=== PATIENT | female | born 2000 | race Caucasian/White ===

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

== ENCOUNTER 2023-04-28 11:22 | Inpatient (IN) ==
[2023-04-28] MEDS ORDERED: Al Hydrox/Mg Hydrox/Simet LIQ 30 ML UDC PO PRN (14:34)
[2023-04-28] MEDS ORDERED: Nicotine GUM 2MG FRUIT FLAVOR PO PRN (16:35)
[2023-04-28] MEDS ORDERED: Insulin GLARGINE 100 un/ml 10 ml VIAL SUBCUT SCH (21:00)
[2023-04-29 07:58] LABS: HDL Cholesterol 47.1 mg/dL
[2023-04-29] MEDS: Nicotine PATCH 14 MG/24 HR PATCH TRANSDERM SCH (09:49)
[2023-04-29 16:26] LABS: HIV 4th Generation Nonreactive (Nonreactive)
[2023-04-29] MEDS ORDERED: SEMAGLUTIDE SUBCUT SCH (17:00)
[2023-04-29] MEDS ORDERED: INJECTOR SUBCUT SCH (17:00)
[2023-04-29] MEDS: Insulin GLARGINE 100 un/ml 10 ml VIAL SUBCUT SCH (21:01)
[2023-04-30] MEDS: Nicotine PATCH 14 MG/24 HR PATCH TRANSDERM SCH (09:37)
[2023-04-30 12:35] LABS: Chlamydia trachomatis NAA Negative (Negative); Neisseria gonorrhoeae (GC) NAA Negative (Negative)
[2023-04-30] MEDS: Insulin GLARGINE 100 un/ml 10 ml VIAL SUBCUT SCH (21:39)
[2023-05-01] MEDS: Nicotine PATCH 14 MG/24 HR PATCH TRANSDERM SCH (09:28)
[2023-05-01 10:09] VITALS: BP 122/80
[2023-05-02] MEDS ORDERED: [UNRECOGNIZED DRUG - OTHER] TRANSDERM SCH (17:00)
== END 2023-05-01 16:00 | disposition home or self-care (01) | DRG 776 ==
LOC: BSU 15:35
PROVIDERS: ADMIT Psychiatry & Neurology Psychiatry; ATTEND Psychiatry & Neurology Psychiatry